=== PATIENT | female | born 1975 | race American Indian/Alaskan Native ===

== ENCOUNTER 2016-09-08 17:52 | Emergency (ER) | payer SELFPAY ==
[2016-09-08] MEDS ORDERED: DECADRON IM STA (19:53)
[2016-09-08] MEDS ORDERED: NORCO 5/325 PO ONE (19:53)
[2016-09-08] MEDS ORDERED: BENADRYL IM ONE (19:53)
[2016-09-08] MEDS ORDERED: ROCEPHIN IM ONE (19:53)
[2016-09-08] MEDS ORDERED: XYLOCAINE 1% MPF 5 mL INFILTRATI ONE (19:53)
--- NOTE | 2016-09-08 19:53 | Emergency Department Report ---
- General Chief complaint: Skin Rash Stated complaint: INSECT BITE ON RT THIGH Time Seen by Provider: 09/08/16 19:20 Source: patient Mode of arrival: Ambulatory Limitations: No Limitations - History of Present Illness Initial comments: Patient here reported that she got bitten by something yesterday and it started off as a small red area on her right upper thigh but now today it increased in redness and looks like it has whelps. She reports that her pain is 8 out of 10 to site. Denies any fever or chills or nausea or vomiting. Denies taking any [id number] medication. Denies any respiratory symptoms. MD complaint: rash, insect bite/sting -: Last night Tetanus Up to Date: yes Location: RLE (right thigh) Severity: severe Severity scale (0 -10): 8 Quality: burning, constant Consistency: constant Improves with: none Worsens with: movement Context: witnessed insect bite Associated symptoms: athralgias Treatments Prior to Arrival: other (none) - Related Data Previous Rx's Medication Instructions Recorded Last Taken Type Cetirizine HCl [ZyrTEC] 10 mg PO QDAY #10 capsule 09/08/16 Unknown Rx Ibuprofen [Motrin] 600 mg PO Q8H PRN #15 tablet 09/08/16 Unknown Rx Sulfamethoxazole/Trimethoprim 1 each PO BID #20 tablet 09/08/16 Unknown Rx [Bactrim DS TAB] predniSONE [Deltasone] 50 mg PO QDAY #5 tab 09/08/16 Unknown Rx Allergies Allergy/AdvReac Type Severity Reaction Status Date / Time No Known Allergies Allergy Unverified 09/08/16 18:06 Abscess Boil HPI - HPI Chief Complaint: Skin Rash Stated Complaint: INSECT BITE ON RT THIGH Time Seen by Provider: 09/08/16 19:20 Home Medications: Previous Rx's Medication Instructions Recorded Last Taken Type Cetirizine HCl [ZyrTEC] 10 mg PO QDAY #10 capsule 09/08/16 Unknown Rx Ibuprofen [Motrin] 600 mg PO Q8H PRN #15 tablet 09/08/16 Unknown Rx Sulfamethoxazole/Trimethoprim 1 each PO BID #20 tablet 09/08/16 Unknown Rx [Bactrim DS TAB] predniSONE [Deltasone] 50 mg PO QDAY #5 tab 09/08/16 Unknown Rx Allergies/Adverse Reactions: Allergies Allergy/AdvReac Type Severity Reaction Status Date / Time No Known Allergies Allergy Unverified 09/08/16 18:06 ED Review of Systems ROS: Stated complaint: INSECT BITE ON RT THIGH Other details as noted in HPI Comment: All other systems reviewed and negative Constitutional: denies: chills, fever ENT: denies: throat pain, congestion Respiratory: no symptoms reported Cardiovascular: denies: chest pain, palpitations, edema, syncope Gastrointestinal: denies: nausea, vomiting Musculoskeletal: arthralgia. denies: back pain Skin: rash Neurological: denies: headache ED Past Medical Hx - Past Medical History Previous Medical History?: Yes Hx Asthma: Yes Additional medical history: Pseudo tumors, Chiari malformation - Surgical History Past Surgical History?: No - Family History Family history: no significant - Social History Smoking Status: Never Smoker Substance Use Type: Alcohol, Prescribed - Medications Home Medications: Home Medications Medication Instructions Recorded Confirmed Last Taken Type Cetirizine HCl [ZyrTEC] 10 mg PO QDAY #10 capsule 09/08/16 Unknown Rx Ibuprofen [Motrin] 600 mg PO Q8H PRN #15 tablet 09/08/16 Unknown Rx Sulfamethoxazole/Trimethoprim 1 each PO BID #20 tablet 09/08/16 Unknown Rx [Bactrim DS TAB] predniSONE [Deltasone] 50 mg PO QDAY #5 tab 09/08/16 Unknown Rx ED Physical Exam - General Limitations: No Limitations General appearance: alert, in no apparent distress - Head Head exam: Present: atraumatic, normocephalic, normal inspection - Eye Eye exam: Present: normal appearance, PERRL, EOMI. Absent: scleral icterus, periorbital swelling, periorbital tenderness Pupils: Present: normal accommodation - ENT ENT exam: Present: normal exam, normal orophraynx, mucous membranes moist - Neck Neck exam: Present: normal inspection, full ROM. Absent: tenderness, lymphadenopathy - Respiratory Respiratory exam: Present: normal lung sounds bilaterally. Absent: respiratory distress, wheezes, rales, rhonchi, stridor, chest wall tenderness - Cardiovascular Cardiovascular Exam: Present: regular rate, normal rhythm, normal heart sounds - Extremities Exam Extremities exam: Present: normal inspection, full ROM, tenderness (tender to palpate right upper thigh at inset bite site), normal capillary refill. Absent : pedal edema, joint swelling, calf tenderness - Neurological Exam Neurological exam: Present: alert, oriented X3, normal gait, reflexes normal. Absent: motor sensory deficit - Psychiatric Psychiatric exam: Present: normal affect, normal mood - Skin Skin exam: Present: warm, dry, erythema - Expanded Skin Exam Expanded Type of lesion: Present: rash, bite/sting. Absent: abscess Distribution of rash: RUE (right proximal anterior thigh) Description of rash: Present: size (6 x 8 cm), tenderness, erythematous, swelling. Absent: crusting, discharge, fluctuant, indurated ED Course Vital Signs 09/08/16 18:06 Temperature 97.7 F Pulse Rate 100 H Respiratory 20 Rate Blood Pressure 122/80 O2 Sat by Pulse 99 Oximetry - Reevaluation(s) Reevaluation #1: 09/08/16 21:17 Patient given Rocephin 1 g IM, Benadryl 50 mg IM, Decadron 10 mg IM and Reading 5/ 325 2 tablets by mouth. She was treated for cellulitis and allergic reaction from insect bite. ED Medical Decision Making - Medical Decision Making ED course: Status post insect bite with cellulitis and allergic reaction to right proximal anterior thigh. Patient treated with Reading 5/325 2 tablets by mouth for pain to right thigh, she was given Decadron 10 mg IM, Benadryl 50 mg IM for allergic reaction from insect bite and Rocephin 1 g IM to cover infection. Patient stable and without pain at present. I discussed diagnosis and treatment plan with her. Patient discharged home in stable condition with prescription for Motrin, Bactrim DS, Zyrtec and prednisone. Patient to follow- up with primary care physician in 3 days and if she does not have a primary care physician she can follow up with outside Medical Center. Critical care attestation.: If time is entered above; I have spent that time in minutes in the direct care of this critically ill patient, excluding procedure time. ED Disposition Clinical Impression: Cellulitis of right thigh, Arthralgia of right thigh Insect bite Qualifiers: Encounter type: initial encounter Qualified Code(s): W57.XXXA - Bitten or stung by nonvenomous insect and other nonvenomous arthropods, initial encounter Minor allergic reaction Qualifiers: Encounter type: initial encounter Qualified Code(s): T78.40XA - Allergy, unspecified, initial encounter Disposition: TO HOME OR SELFCARE Is pt being admited?: No Does the pt Need Aspirin: No Condition: Stable Instructions: Cellulitis (ED), Insect Bite or Sting (ED), Arthralgia (ED) Additional Instructions: Please return to the emergency room if he notices fever, increase in redness at infected bite site, difficulty breathing and/or drainage from site. Please take antibiotic and other medication as prescribed. Please keep affected area clean and dry Prescriptions: Cetirizine HCl [ZyrTEC] 10 mg PO QDAY #10 capsule Ibuprofen [Motrin] 600 mg PO Q8H PRN #15 tablet PRN Reason: Pain predniSONE [Deltasone] 50 mg PO QDAY #5 tab Sulfamethoxazole/Trimethoprim [Bactrim DS TAB] 1 each PO BID #20 tablet Referrals: PRIMARY CARE, [Primary Care Provider] - 2-3 Days [facility] [Outside] - 2-3 Days Forms: Work/School Release Form(ED)
[2016-09-08 21:35] VITALS: BP 110/79
== END 2016-09-08 21:45 | disposition home or self-care (01) ==
LOC: ED 17:52
DX: S70.361A Insect bite (nonvenomous), right thigh, initial encounter (principal); L03.115 Cellulitis of right lower limb; T63.481A Toxic effect of venom of other arthropod, accidental (unintentional), initial encounter; J45.909 Unspecified asthma, uncomplicated; Y92.89 Other specified places as the place of occurrence of the external cause
CPT/HCPCS: 96372; 99282; J0696; J1100; J1200